=== PATIENT | female | born 1995 | race African-American/Black ===

== ENCOUNTER 2019-09-09 19:02 | Emergency (ER) | payer OTHER ==
[2019-09-09 19:19] VITALS: BP 131/88
--- NOTE | 2019-09-09 19:49 | ED ---
Nausea/Vomiting/Diarrhea HPI - HPI Summary HPI Summary: 24 yo with onset of nausea and diarrhea yesterday, without vomiting or fever. She has had headaches off and on for the past months, which she thinks relates to losing her glasses. She has a headache above the eyes which she attributes to eye strain. No diplopia or photophobia. - History of Current Complaint Chief Complaint: UCGI Stated Complaint: HEADACHE, UPSET STOMACH Time Seen by Provider: 09/09/19 19:40 Hx Obtained From: Patient Hx Last Menstrual Period: 08/09/19 Onset/Duration: Sudden Onset Timing: Intermittent Episodes Lasting: Severity Initially: Mild Severity Currently: Mild Pain Intensity: 2 Location: Diffuse Character: Cramping Aggravating Factor(s): Food Alleviating Factor(s): Nothing - no meds used. Nausea/Vomiting Presence: None Diarrhea Frequency: Daily Diarrhea Duration: 24-36 hours Diarrhea Characteristics: Watery - Risk Factors Influenza Risk Factors: Negative Surgical Obstruction Risk Factor(s): Negative - Allergies/Home Medications Allergies/Adverse Reactions: Allergies Allergy/AdvReac Type Severity Reaction Status Date / Time No Known Allergies Allergy Verified 09/09/19 19:11 Home Medications: Home Medications NK [No Home Medications Reported] 06/12/16 [History Confirmed 09/09/19] PMH/Surg Hx/FS Hx/Imm Hx Previously Healthy: Yes EENT History: Reports: Hx Seasonal Allergies Infectious Disease History: No Infectious Disease History: Denies: Traveled Outside the [place] in Last 30 Days - Family History Known Family History: Positive: Cardiac Disease, Hypertension, Other - sister has migraines - Social History Occupation: Employed Full-time Alcohol Use: Occasionally Substance Use Type: Reports: Marijuana Substance Use Comment - Amount & Last Used: occasional Smoking Status (MU): Current Some Day Smoker Review of Systems Constitutional: Negative Eyes: Negative ENT: Negative Cardiovascular: Negative Respiratory: Negative Positive: Diarrhea, Nausea Genitourinary: Negative Musculoskeletal: Negative Skin: Negative Neurological/Mental Status: Negative Positive: Headache Psychological: Normal All Other Systems Reviewed And Are Negative: No Physical Exam Triage Information Reviewed: Yes Vital Signs On Initial Exam: Initial Vitals Temp Pulse Resp BP Pulse Ox 98.0 F 84 15 131/88 98 09/09/19 19:11 09/09/19 19:11 09/09/19 19:11 09/09/19 19:11 09/09/19 19:11 Vital Signs Reviewed: Yes Appearance: Positive: Well-Appearing, No Pain Distress Skin: Positive: Warm Eyes: Positive: Normal, EOMI, DAVID ENT: Positive: Normal ENT inspection Neck: Positive: Supple, Nontender, No Lymphadenopathy Cardiovascular: Positive: Normal, RRR Abdomen Description: Positive: Nontender, No Organomegaly, Soft Musculoskeletal: Positive: Normal Neurological: Positive: Normal Psychiatric: Positive: Normal Diagnostics - Vital Signs Vital Signs Temp Pulse Resp BP Pulse Ox 09/09/19 19:11 98.0 F 84 15 131/88 98 - Laboratory Lab Statement: Any lab studies that have been ordered have been reviewed, and results considered in the medical decision making process. Naus/Vom/Diarrhea Course/Dx - Course Course Of Treatment: Continue light meals, rehydration. Discussed allergies, need for a PMD, and need for an eye check. - Differential Dx/Diagnosis Differential Diagnoses - Female: Gastroenteritis (Viral) Provider Diagnosis: Gastroenteritis and colitis, viral Discharge ED - Sign-Out/Discharge Documenting (check all that apply): Patient Departure All imaging exams completed and their final reports reviewed: No Studies - Discharge Plan Condition: Stable Disposition: HOME Patient Education Materials: Gastroenteritis (ED) Forms: *Work Release Referrals: No Primary Care Phys,NOPCP [Primary Care Provider] - [facility] [Outside] Additional Instructions: You can call our physician referral service to establish with a new primary care physician. Eat lightly, increase clear fluids, and avoid fried or fatty foods. For allergies, you might try use of over the counter fexofenadine 180mg once daily OR cetirazine 10 mg once daily. Use of flonase nasal spray 2 sprays to both nostrils once daily might also help with symptoms. - Billing Disposition and Condition Condition: STABLE Disposition: Home
== END 2019-09-09 20:01 | disposition home or self-care (01) ==
LOC: UCCORT 19:02
DX: A08.4 Viral intestinal infection, unspecified (principal); Z72.0 Tobacco use
CPT/HCPCS: 99201; G0463